=== PATIENT | female | born 1980 | race Hispanic/Latino ===

== ENCOUNTER 2020-11-01 12:14 | Emergency (ER) | payer SELFPAY ==
[2020-11-01 13:16] VITALS: BP 132/76
[2020-11-01] MEDS ORDERED: LIDOCAINE (1%) 10 MG/1 ML VIAL 20 ML MDV INFILTRATI ONE (13:55)
[2020-11-01] MEDS ORDERED: TETANUS,DIPH,PERTUSS(ACELL) VACCINE 0.5 ML SYRINGE IM ONE (14:23)
--- NOTE | 2020-11-01 14:32 | Emergency Department Report ---
[place] Lac[place] [facility] Chief Complaint: Wound/Laceration Stated Complaint: LEFT HAND INJURY Time Seen by Provider: 11/01/20 13:30 ED Review of Systems ROS: Stated complaint: LEFT HAND INJURY Other details as noted in HPI ED Past Medical Hx - Past Medical History Previous Medical History?: No - Surgical History Past Surgical History?: No Laceration Physical Exam - Exam General: Vital signs noted. No distress. Alert and acting appropriately. ED Course Vital Signs 11/01/20 13:16 Temperature 98 F Pulse Rate 99 H Respiratory 16 Rate Blood Pressure 132/76 [Right] O2 Sat by Pulse 99 Oximetry - Laceration /Wound Repair Right Palm Hand Wound Location: upper extremity Wound Length (cm): 1 Wound's Depth, Shape: into muscle, irregular Wound Explored: no foreign body removed Irrigated w/ Saline (ccs): 45 Betadine Prep?: Yes Anesthesia: 1% Lidocaine Volume Anesthetic (ccs): 2 Wound Debrided: minimal Wound Repaired With: sutures Suture Size/Type: 3:0 Number of Sutures: 2 Layer Closure?: No Sterile Dressing Applied?: Yes Progress: Patient tolerated well ED Medical Decision Making - Medical Decision Making 40-year-old female presents to the emergency room for left hand first digit proximal laceration while at work with a striated knife. Patient denies any past medical history reports she takes phentermine and has allergy to penicillin and codeine. Patient denies any dizziness weakness chest pain. Laceration repaired with sutures. Patient tolerated well discussed with patient to return in 5 to 7 days to have sutures removed. Critical care attestation.: If time is entered above; I have spent that time in minutes in the direct care of this critically ill patient, excluding procedure time. ED Disposition Clinical Impression: Laceration of finger Qualifiers: Encounter type: initial encounter Finger: index finger Damage to nail status: without damage Foreign body presence: without foreign body Laterality: left Qualified Code(s): S61.211A - Laceration without foreign body of left index finger without damage to nail, initial encounter Disposition: TO HOME OR SELFCARE Is pt being admited?: No Does the pt Need Aspirin: No Condition: Stable Instructions: Laceration Care, Adult, [id number] Additional Instructions: Tylenol or ibuprofen for pain. Keep wound clean and dry. Return to the emergency room to have sutures removed in 5 to 7 days. Return sooner if there is any concern for infection such as swelling redness purulent discharge. Referrals: PRIMARY CARE, [Primary Care Provider] - 3-5 Days Forms: Work/School Release Form(ED)
== END 2020-11-01 14:42 | disposition home or self-care (01) ==
LOC: ED 12:14
DX: S61.211A Laceration without foreign body of left index finger without damage to nail, initial encounter (principal); W26.0XXA Contact with knife, initial encounter; Y93.89 Activity, other specified; Y92.89 Other specified places as the place of occurrence of the external cause; Y99.8 Other external cause status
CPT/HCPCS: 90471; 90715; 99282